=== PATIENT | female | born 1970 | race Hispanic/Latino ===

== ENCOUNTER 2016-12-19 09:20 | Outpatient (CLI) | payer OTHER ==
--- NOTE | 2016-12-20 10:12 | Mammography Report ---
BILATERAL DIGITAL SCREENING MAMMOGRAM with CAD: CLINICAL: Routine screening. COMPARISON:None available. However, a prior mammogram was apparently done at [facility]. FINDINGS: The breasts are heterogeneously dense, which may obscure small masses. A right asymmetry on the MLO view requires comparison with a prior mammogram for additional imaging of the right breast.No architectural distortion or suspicious calcifications.The left breast is negative. IMPRESSION: Right asymmetry requiring further evaluation. BI-RADS CATEGORY: 0 -- Additional Evaluation Required RECOMMENDATION: Comparison with a previous mammogram. We will attempt to obtain a prior mammogram from [facility]. If we do not obtain a prior mammogram for comparison within 30 days, a revised report will be issued recommending a recall for additional imaging of the right breast. Please be advised that the patient should not schedule an appointment for return until adequate time (at least 2 weeks) has passed for us to obtain the prior mammogram. ACR BI-RADS MAMMOGRAPHIC CODES: 0 = Needs additional imaging evaluation; 1 = Negative; 2 = Benign; 3 = Probably benign; 4 = Suspicious; 5 = Malignant; 6 = Known biopsy-proven malignancy COMMENT: 1. Dense breast tissue, i.e., adenosis, fibrocystic changes, etc., may obscure an underlying neoplasm. 2. Approximately 10% of cancers are not detected with mammography. 3. A negative mammography report should not delay biopsy if a clinically suspicious mass is present. COMMENT: Patient follow-up letters are generated via our [employer] application.
== END 2016-12-19 09:21 | disposition home or self-care (01) ==
LOC: SPVWC 09:20
PROVIDERS: ATTEND Obstetrics & Gynecology
DX: Z12.31 Encounter for screening mammogram for malignant neoplasm of breast (principal)
CPT/HCPCS: 77067; G0202

== ENCOUNTER 2017-01-24 12:41 | Outpatient (CLI) | payer OTHER ==
--- NOTE | 2017-01-24 13:28 | Mammography Report ---
RIGHT DIGITAL DIAGNOSTIC MAMMOGRAM : 01/24/17 12:41:00 CLINICAL: Recalled for asymmetry. COMPARISON:12/19/16 screening FINDINGS: Spot compression MLO views were performed and demonstrates satisfactory effacement of asymmetry. IMPRESSION: Negative Mammogram. BI-RADS CATEGORY: 1 -- Negative RECOMMENDATION: Routine mammographic screening in one year. ACR BI-RADS MAMMOGRAPHIC CODES: 0 = Needs additional imaging evaluation; 1 = Negative; 2 = Benign; 3 = Probably benign; 4 = Suspicious; 5 = Malignant; 6 = Known biopsy-proven malignancy COMMENT: 1. Dense breast tissue, i.e., adenosis, fibrocystic changes, etc., may obscure an underlying neoplasm. 2. Approximately 10% of cancers are not detected with mammography. 3. A negative mammography report should not delay biopsy if a clinically suspicious mass is present. COMMENT: Patient follow-up letters are generated via our [employer] application.
== END 2017-01-24 12:42 | disposition home or self-care (01) ==
LOC: SPVWC 12:41
PROVIDERS: ATTEND Obstetrics & Gynecology
DX: N64.89 Other specified disorders of breast (principal)
CPT/HCPCS: G0206-RT

== ENCOUNTER 2018-02-11 08:44 | Outpatient (CLI) | payer OTHER ==
--- NOTE | 2018-02-12 09:17 | Mammography Report ---
BILATERAL DIGITAL SCREENING MAMMOGRAM with CAD: 02/11/18 08:44:00 CLINICAL: Routine screening. COMPARISON:01/24/17 FINDINGS: The breasts are heterogeneously dense, which may obscure small masses. A left subareolar 8mm circumscribed mass with a lobular contour requires additional imaging.No architectural distortion or suspicious calcifications.The right breast is negative. IMPRESSION: Left breast mass requiring further workup. BI-RADS CATEGORY: 0 -- Additional Imaging Evaluation Required RECOMMENDATION: Recall for a targeted left breast ultrasound and additional mammographic views if needed. ACR BI-RADS MAMMOGRAPHIC CODES: 0 = Needs additional imaging evaluation; 1 = Negative; 2 = Benign; 3 = Probably benign; 4 = Suspicious; 5 = Malignant; 6 = Known biopsy-proven malignancy COMMENT: 1. Dense breast tissue, i.e., adenosis, fibrocystic changes, etc., may obscure an underlying neoplasm. 2. Approximately 10% of cancers are not detected with mammography. 3. A negative mammography report should not delay biopsy if a clinically suspicious mass is present. COMMENT: Patient follow-up letters are generated via our [employer] application.
== END 2018-02-11 08:45 | disposition home or self-care (01) ==
LOC: SPVWC 08:44
PROVIDERS: ATTEND Obstetrics & Gynecology
DX: Z12.31 Encounter for screening mammogram for malignant neoplasm of breast (principal)
CPT/HCPCS: 77067

== ENCOUNTER 2018-02-20 09:32 | Outpatient (CLI) | payer OTHER ==
--- NOTE | 2018-02-20 10:32 | Ultrasound Report ---
LEFT BREAST ULTRASOUND: 02/20/18 09:32:00 CLINICAL: Abnormal mammogram. COMPARISON: 02/11/18 screening mammogram. FINDINGS: Targeted ultrasound of the left breast was performed and demonstrated an oval benign anechoic cyst at 2 o'clock 5 cm from the nipple. It measures 7 x 6 x 5 mm and correlates with the mammographic density. IMPRESSION: Benign cyst at 2 o'clock. BI-RADS 2 - - Benign RECOMMENDATION: Routine mammographic screening in one year.
== END 2018-02-20 09:33 | disposition home or self-care (01) ==
LOC: SPVWC 09:32
PROVIDERS: ATTEND Obstetrics & Gynecology
DX: N60.02 Solitary cyst of left breast (principal)

== ENCOUNTER 2019-05-06 14:26 | Outpatient (CLI) | payer OTHER ==
--- NOTE | 2019-05-07 15:34 | Mammography Report ---
DIGITAL SCREENING MAMMOGRAM WITH TOMOSYNTHESIS WITH CAD, 05/06/2019 INDICATION: Routine Screening Mammography. SCREENING/ EXTREMELY DENSE BREASTS TECHNIQUE: Digital bilateral 2D and 3D mammography with tomosynthesis was obtained in the craniocau mary grace and mediolateral oblique projections. Computer-Aided Detection (CAD) analysis was used for inter pretation of this study. COMPARISON: 02/11/2018 FINDINGS: Breast Density: The breasts are heterogeneously dense, which may obscure small masses. A 2 cm right oval circumscribed mass with a lobular margin in the upper outer right breast requires a dditional evaluation. It is identified on image 23 of the MLO martin series and image 31 of the CC martin series. No architectural distortion or suspicious calcifications of the right breast. There is no ev idence of dominant mass, suspicious calcifications or architectural distortion in the left breast. IMPRESSION: Right breast mass in the upper outer quadrant requiring additional evaluation. Recommend recall for targeted right breast ultrasound. Negative left breast. Recommend routine screening of the left breast. Follow up recommendation: Ultrasound Category 0: Incomplete. Needs additional imaging evaluation and/or prior mammograms for comparison. A "normal" or negative report should not discourage follow up or biopsy of a clinically significant f inding. A written summary of these findings will be mailed to the patient. The patient will be entered into a mammography reporting system which will generate a reminder letter for the patient's next appointmen t at the appropriate interval. The [employer] recommends yearly mammograms starting at age 40 and continuing as l jose m as a woman is in good health. Breast MRI is recommended for women with an approximate 20-25% or greater lifetime risk of breast cancer, including women with a strong family history of breast or ova deneen cancer or who have been treated for Hodgkin's disease. Signer Name: Giancarlo Lundberg MD Signed: 05/07/2019 3:30 PM Workstation Name: [id number]
== END 2019-05-06 14:27 | disposition home or self-care (01) ==
LOC: SPVWC 14:26
PROVIDERS: ATTEND Obstetrics & Gynecology
DX: Z12.31 Encounter for screening mammogram for malignant neoplasm of breast (principal)
CPT/HCPCS: 77063; 77067

== ENCOUNTER 2019-06-11 08:01 | Outpatient (CLI) | payer OTHER ==
--- NOTE | 2019-06-11 08:38 | Ultrasound Report ---
RIGHT BREAST ULTRASOUND HISTORY: Upper outer mass identified by recent mammogram with tomosynthesis. COMPARISON: 05/06/2019 mammogram FINDINGS: Sonographic evaluation focused upon the upper outer location of the right breast demonstrat es an oval slightly irregular cystic mass at 10:00 5 cm from the nipple. It has numerous septations a nd demonstrates posterior enhancement. It measures 1.7 x 0.9 x 1.0 cm and correlates with the mammogr aphic mass. IMPRESSION: A 1.7 cm cystic mass of the right breast at 10:00 5 cm from the nipple. It has an unusual architectur e with numerous septations. Recommend ultrasound-guided needle biopsy to exclude malignancy. I discussed the findings and the recommendation for needle biopsy with the patient at the time of the exam. BIRADS 4: Suspicious abnormality. Signer Name: Giancarlo Lundberg MD Signed: 06/11/2019 8:33 AM Workstation Name: [id number]
== END 2019-06-11 08:02 | disposition home or self-care (01) ==
LOC: SPVWC 08:01
PROVIDERS: ATTEND Obstetrics & Gynecology
DX: N60.01 Solitary cyst of right breast (principal); R92.8 Other abnormal and inconclusive findings on diagnostic imaging of breast

== ENCOUNTER 2019-06-19 14:51 | Outpatient (CLI) | payer OTHER | END 2019-06-19 14:52 | disposition home or self-care (01) | LOC: LABHHL 14:51 | PROVIDERS: ATTEND Surgery | DX: N63.11 Unspecified lump in the right breast, upper outer quadrant (principal) | CPT/HCPCS: 88112 ==

== ENCOUNTER 2019-10-06 14:02 | Outpatient (CLI) | payer OTHER ==
--- NOTE | 2019-10-06 14:54 | Ultrasound Report ---
LEFT BREAST ULTRASOUND HISTORY: Follow-up after benign cyst aspiration and core biopsy. COMPARISON: 06/11/2019 FINDINGS: Sonographic evaluation focused upon the upper outer location of the left breast demonstrate s an irregular complex shadowing lesion at 10:00 4 cm from the nipple measuring approximately 8 x 2 x 4 mm. The appearance is quite different from the multiseptated mass which was identified on the prio r exam. IMPRESSION: A probably benign residual 8mm mass at 10:00 4 cm from the nipple. Recommend short-term follow-up ultrasound in 3 months to reevaluate this lesion. BIRADS 3: Probably benign. Signer Name: Giancarlo Lundberg MD Signed: 10/06/2019 2:50 PM Workstation Name: [id number]
== END 2019-10-06 14:03 | disposition home or self-care (01) ==
LOC: SPVWC 14:02
PROVIDERS: ATTEND Surgery
DX: R92.8 Other abnormal and inconclusive findings on diagnostic imaging of breast (principal)

== ENCOUNTER 2019-10-19 12:29 | Outpatient (CLI) | payer OTHER ==
--- NOTE | 2019-10-19 14:01 | Ultrasound Report ---
ULTRASOUND-GUIDED VACUUM-ASSISTED NEEDLE CORE BIOPSY RIGHT BREAST WITH CLIP PLACEMENT CLINICAL: A 7 x 2 x 3 mm right breast mass at 10:00 4 cm from the nipple. FINDINGS: The procedure was explained to the patient and informed consent was obtained. Ultrasound demonstrated the previously identified lesion.. I marked the breast with a felt tip marker and a timeout was called. The skin was prepped with Chloro -Prep and anesthetized with 1% lidocaine. Vacuum-assisted needle core biopsy was performed through tiny dermatotomy using ultrasound guidance, 2% lidocaine with epinephrine for deep anesthesia and a 13-gauge Mammotome Elite biopsy device. Multi ple cores were obtained and placed in formalin. The lesion disappeared and a hydromark clip was deplo yed at the site. The patient tolerated the procedure well and there were no apparent complications. H emostasis was achieved with minimal effort and a sterile dressing was applied. A post procedure mammogram demonstrated concordant clip deployment. She left the department in good c ondition and was given instructions for wound care and follow-up. IMPRESSION: Uncomplicated ultrasound guided needle core biopsy with clip placement right breast. Signer Name: Giancarlo Lundberg MD Signed: 10/19/2019 1:57 PM Workstation Name: [id number]
--- NOTE | 2019-10-19 14:03 | Mammography Report ---
DIGITAL DIAGNOSTIC MAMMOGRAM WITH CAD, 10/19/2019 INDICATION: RIGHT BREAST MASS TECHNIQUE: Digital right mammographic imaging was performed. This examination was interpreted with the benefit of Computer-aided Detection analysis. COMPARISON: 06/19/2019 FINDINGS: Breast Density: The breast is heterogeneously dense, which may obscure small masses. A new second biopsy clip is identified in the upper outer quadrant. The clip is closer to the nipple and at least 3 cm closer to the nipple than the original clip. IMPRESSION: Concordant clip deployment after ultrasound biopsy. Follow up recommendation: No recall. Post biopsy imaging. A "normal" or negative report should not discourage follow up or biopsy of a clinically significant f inding. A written summary of these findings will be mailed to the patient. The patient will be entered into a mammography reporting system which will generate a reminder letter for the patient's next appointmen t at the appropriate interval. According to the [employer], yearly mammograms are recommended starting at age 40 and continuing as long as a woman is in good health. Breast MRI is recommended for women with an melanie roximately 20-25% or greater lifetime risk of breast cancer, including women with a strong family his tory of breast or ovarian cancer and women who have been treated for Hodgkin's disease. Signer Name: Giancarlo Lundberg MD Signed: 10/19/2019 1:59 PM Workstation Name: [id number]
== END 2019-10-19 12:30 | disposition home or self-care (01) ==
LOC: SPVWC 12:29
PROVIDERS: ATTEND Surgery
DX: N63.11 Unspecified lump in the right breast, upper outer quadrant (principal); N60.31 Fibrosclerosis of right breast
CPT/HCPCS: 88305

== ENCOUNTER 2020-05-10 13:53 | Outpatient (CLI) | payer OTHER ==
--- NOTE | 2020-05-10 14:31 | Mammography Report ---
DIGITAL SCREENING MAMMOGRAM WITH CAD, 05/10/2020 INDICATION: Routine screening mammography. TECHNIQUE: Digital bilateral 2D mammography was obtained in the craniocaudal and mediolateral obliq ue projections. This examination was interpreted with the benefit of Computer-Aided Detection analysi s. COMPARISON: 10/19/2019, 06/19/2019, 05/06/2019, 02/11/2018, 01/24/2017 FINDINGS: Breast Density: The breasts are heterogeneously dense, which may obscure small masses. There is no evidence of dominant mass, suspicious calcifications or architectural distortion in eithe r breast. Biopsy clips are again noted in the right breast. IMPRESSION: Follow up recommendation: Routine yearly BI-RADS Category 2: Benign. A "normal" or negative report should not discourage follow up or biopsy of a clinically significant f inding. A written summary of these findings will be mailed to the patient. The patient will be entered into a mammography reporting system which will generate a reminder letter for the patient's next appointmen t at the appropriate interval. The [employer] recommends yearly mammograms starting at age 40 and continuing as l jose m as a woman is in good health. Breast MRI is recommended for women with an approximate 20-25% or greater lifetime risk of breast cancer, including women with a strong family history of breast or ova deneen cancer or who have been treated for Hodgkin's disease. Signer Name: Pamela Pittman MD Signed: 05/10/2020 2:26 PM Workstation Name: [id number]
== END 2020-05-10 13:54 | disposition home or self-care (01) ==
LOC: SPVWC 13:53
PROVIDERS: ATTEND Surgery
DX: Z12.31 Encounter for screening mammogram for malignant neoplasm of breast (principal)
CPT/HCPCS: 77067

== ENCOUNTER 2021-05-11 14:41 | Outpatient (CLI) | payer OTHER ==
--- NOTE | 2021-05-12 08:25 | Mammography Report ---
DIGITAL SCREENING MAMMOGRAM WITH CAD, 05/11/2021 CLINICAL INFORMATION / INDICATION: Routine screening mammography. SCREENING MAMMO Z12.31 TECHNIQUE: Digital bilateral 2D mammography was obtained in the craniocaudal and mediolateral obliqu e projections. This examination was interpreted with the benefit of Computer-Aided Detection analysis . COMPARISON: 05/10/2020 FINDINGS: Breast Density: The breasts are heterogeneously dense, which may obscure small masses. No dominant mass, suspicious calcifications, or architectural distortion in either breast. IMPRESSION: No mammographic evidence of malignancy. Follow up recommendation: Routine yearly BI-RADS Category 1: Negative. A "normal" or negative report should not discourage follow up or biopsy of a clinically significant f inding. A written summary of these findings will be mailed to the patient. The patient will be entered into a mammography reporting system which will generate a reminder letter for the patient's next appointmen t at the appropriate interval. The [employer] recommends yearly mammograms starting at age 40 and continuing as l jose m as a woman is in good health. Breast MRI is recommended for women with an approximate 20-25% or greater lifetime risk of breast cancer, including women with a strong family history of breast or ova deneen cancer or who have been treated for Hodgkin's disease. Signer Name: Frankie Land MD Signed: 05/12/2021 8:20 AM Workstation Name: [id number]
== END 2021-05-11 14:42 | disposition home or self-care (01) ==
LOC: SPVWC 14:41
PROVIDERS: ATTEND Obstetrics & Gynecology
DX: Z12.31 Encounter for screening mammogram for malignant neoplasm of breast (principal)
CPT/HCPCS: 77067